=== PATIENT | female | born 2005 | race African-American/Black ===

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

== ENCOUNTER 2023-11-12 23:30 | Emergency (ER) | payer OTHER ==
[~2023-11-12] VITALS: Ht 162.6 cm; Wt 73.0 kg
[~2023-11-12 23:30] MED LIST changes: +BACTRIM DS1 TAB PO; +MECLIZINE 2525 MG PO; +PYRIDIUM200 MG PO
[2023-11-12] MEDS ORDERED: ACETAMINOPHEN 500 MG TAB PO ONE (23:45)
[2023-11-12] MEDS ORDERED: IBUPROFEN 600 MG/TAB PO ONE (23:45)
[2023-11-13 00:42] VITALS: BP 135/94
[2023-11-13 00:59] LABS: BASO% 0.5 % (0-3); EOS% 1.8 % (0-8); IMMATURE GRANULOCYTES 0.3 % (0.0-5.0); LYMPH% 26.7 % (15-41); MEAN CORPUSCULAR HGB 29.4 pG CALC (26.0-32.0); MEAN CORPUSCULAR HGB CONC 33.3 g/dL CAL (32.0-36.0); NEUT# 3.9 thou/uL (2.00-7.15); NEUT% 58.7 % (42-76); RED BLOOD COUNT 4.77 mill/uL (4.20-5.60)
[2023-11-13 01:08] LABS: MEAN CELL VOLUME 88.1 fL CALC (80.0-100.0)
[2023-11-13 01:09] LABS: ALBUMIN 4.6 g/dL (3.2-5.0); CREATININE 0.9 mg/dL (0.5-1.0)
[2023-11-13 01:10] LABS: BILIRUBIN, TOTAL 1.6 mg/dL (0.02-1.3); POTASSIUM 3.1 mmol/l (3.5-5.1)
[2023-11-13 01:16] VITALS: BP 134/84
[2023-11-13 01:30] VITALS: BP 146/85
[2023-11-13 01:47] VITALS: BP 160/111
[2023-11-13 04:17] VITALS: BP 124/78
== END 2023-11-13 04:18 | disposition home or self-care (01) | DRG 552 ==
LOC: ED 23:30
PROVIDERS: Family Medicine
DX: S16.1XXA Strain of muscle, fascia and tendon at neck level, initial encounter (principal); S20.219A Contusion of unspecified front wall of thorax, initial encounter; V49.50XA Passenger injured in collision with unspecified motor vehicles in traffic accident, initial encounter